=== PATIENT | male | born 1980 | race African-American/Black ===

== ENCOUNTER 2016-06-11 13:34 | Emergency (ER) | payer SELFPAY ==
[~2016-06-11] VITALS: Ht 177.8 cm; Wt 104.0 kg
[2016-06-11 13:36] VITALS: BP 140/90; PULSE 82; RESP 20; TEMP 98.6; O2SAT 97
--- NOTE | 2016-06-11 13:47 | PD ---
Physical Exam Date Seen by Provider: Jun 11, 2016 Time Seen by Provider: 13:45 Narrative 36 yo male here for possible food poisoning. Has had this for 30 minutes. Nausea and vomit. LUQ pain. Pain is 4/10. No chest pain. Sore throat. Most of history obtained from significant other. No blood. Vitals sign stable. Patient awaiting bed placement. Data Data Last Documented VS Vital Signs Date Time Temp Pulse Resp B/P Pulse Ox O2 Delivery O2 Flow Rate FiO2 06/11/16 13:36 98.6 82 20 140/90 97 Room Air [facility] Medical Record Reviewed: Yes Supervised Visit with GUME: No Scripts No Active Prescriptions or Reported Meds Jozef Magdaleno Jun 11, 2016 13:47
[2016-06-11] MEDS ORDERED: ONDANSETRON ODT 4 MG TAB PO ONE (15:15)
[2016-06-11] MEDS ORDERED: ACETAMINOPHEN 500 MG CPLT PO ONE (16:15)
[2016-06-11] MEDS ORDERED: LIDOCAINE VISCOUS 2% SOLN 15 ML UDC SWISH-SWAL ONE (16:15)
[2016-06-11] MEDS ORDERED: ZOFR4TAB3 SL (16:53)
--- NOTE | 2016-06-11 16:53 | PD ---
HPI Chief Complaint: GI Complaint Time Seen by Provider: 15:00 Travel History International Travel<30 days: No Contact w/Intl Traveler<30days: No Traveled to known affect area: No History of Present Illness HPI Patient 36-year-old male who went to [facility] this afternoon as well as his family and several family members have gotten sick after drinking sweet tea. Patient states he thought there was something funky at the bottom of the cup. Patient states his been feeling nauseous and after throwing up several times his throat was sore. Denies any fever denies any abdominal pain denies any diarrhea. PFSH Past Medical History Medical History: Denies Significant Hx Diminished Hearing: No Past Surgical History Surgical History: No Previous Surgery Oral Surgery: Yes (WISDOM TEETH REMOVED) Social History Alcohol Use: Yes Tobacco Use: No Substance Use: Yes (MARIJUANA) Allergies-Medications (Allergen,Severity, Reaction): Coded Allergies: No Known Allergies (Verified , 06/11/16) Reported Meds & Prescriptions Reported Meds & Active Scripts Active Zofran Odt (Ondansetron Odt) 4 Mg Tab 4 Mg SL Q6HR PRN Review of Systems Except as stated in HPI: all other systems reviewed are Neg Physical Exam Narrative GENERAL: Well-developed well-nourished no apparent distress SKIN: Focused skin assessment warm/dry. HEAD: Atraumatic. Normocephalic. EYES: Pupils equal and round. No scleral icterus. No injection or drainage. ENT: No nasal bleeding or discharge. Mucous membranes pink and moist. NECK: Trachea midline. No JVD. CARDIOVASCULAR: Regular rate and rhythm. No murmur appreciated. RESPIRATORY: No accessory muscle use. Clear to auscultation. Breath sounds equal bilaterally. GASTROINTESTINAL: Abdomen soft, non-tender, nondistended. Hepatic and splenic margins not palpable. MUSCULOSKELETAL: No obvious deformities. No clubbing. No cyanosis. No edema. NEUROLOGICAL: Awake and alert. No obvious cranial nerve deficits. Motor grossly within normal limits. Normal speech. PSYCHIATRIC: Appropriate mood and affect; insight and judgment normal. Data Data Last Documented VS Vital Signs Date Time Temp Pulse Resp B/P Pulse Ox O2 Delivery O2 Flow Rate FiO2 06/11/16 17:13 71 16 129/78 98 06/11/16 13:36 98.6 Room Air Orders Ondansetron Odt (Zofran Odt) (06/11/16 15:15) Acetaminophen (Tylenol) (06/11/16 16:15) Lidocaine 2% Viscous (Xylocaine 2% Visco (06/11/16 16:15) MDM Medical Decision Making Medical Screen Exam Complete: Yes Emergency Medical Condition: Yes Differential Diagnosis Gastroenteritis, food poisoning, acute abdomen highly unlikely. Narrative Course Patient 36-year-old male presents emergency Department with signs symptoms consistent with gastroenteritis. He appears well in no apparent distress. He was given several medicines in emerged Department and observed for some time. He had no emesis while in the emergency department. There is no indication for further emergent workup at this time. He is stable for discharge discussed symptomatically management returned ED criteria. Diagnosis Primary Impression: Gastroenteritis Med/Other Pt SpecificInfo: Prescription(s) given Scripts Ondansetron Odt (Zofran Odt)4 Mg Tab4 Mg SL Q6HR PRN (Nausea/Vomiting) #30 TAB Ref 0 Prov:Mj Hendrix MD 06/11/16 Disposition: 01 DISCHARGE HOME Condition: Stable Mj Hendrix MD Jun 11, 2016 16:53
[2016-06-11 17:13] VITALS: BP 129/78
== END 2016-06-11 17:15 | disposition home or self-care (01) ==
LOC: NEPD 13:34
DX: K52.9 Noninfective gastroenteritis and colitis, unspecified (principal); R07.0 Pain in throat
CPT/HCPCS: 99283